=== PATIENT | female | born 1975 | race Caucasian/White ===

== ENCOUNTER 2017-11-21 08:04 | Day surgery (SDC) | payer SELFPAY ==
[2017-11-20 12:17] VITALS: BMI 22.6
[2017-11-21] MEDS ORDERED: MIDAZOLAM HCL 2 MG/2 ML SINGLE DOSE VIAL ONE (09:43)
[2017-11-21] MEDS ORDERED: DEXAMETHASONE SOD PHOSPHATE 4 MG/1 ML VIAL ONE ×2 (09:44→13:10)
[2017-11-21] MEDS ORDERED: ONDANSETRON 4 MG/2 ML VIAL ONE ×2 (09:44→13:10)
[2017-11-21] MEDS ORDERED: PROPOFOL 20 ML ONE ×6 (09:56→12:36)
[2017-11-21] MEDS ORDERED: HYDROmorphone HCL/PF 1 MG/ML VIAL (FOR PYXIS CHARGING ONLY) ONE (09:56)
[2017-11-21] MEDS ORDERED: LIDOCAINE HCL 2% 100 MG/5 ML DISP.SYRIN ONE (10:31)
[2017-11-21] MEDS ORDERED: BUPIVACAINE HCL/EPINEPHRINE/PF 30 ML VIAL IJ ONE (10:32)
[2017-11-21] MEDS ORDERED: LIDOCAINE HCL 1%, 10 MG/ML (20ML VIAL) ONE (10:33)
[2017-11-21] MEDS ORDERED: EPINEPHrine/PF 1 MG/1 ML (1:1,000) AMPULE ONE (10:33)
[2017-11-21] MEDS ORDERED: ceFAZolin SODIUM 1 GM VIAL ONE (10:41)
[2017-11-21] MEDS ORDERED: BACITRACIN 15 GM TUBE TOPICAL OINTMENT ONE (10:44)
[2017-11-21] MEDS ORDERED: BACITRACIN 3.5 GM OPTHALMIC OINT TUBE ONE (10:47)
[2017-11-21] MEDS ORDERED: POVIDONE-IODINE 5% OPHTHALMIC PREP 30 ML SOLUTION ONE (10:54)
[2017-11-21] MEDS ORDERED: BUPIVACAINE 0.25% /EPI 1:200,000 10 ML VIAL INF ONE ×2 (11:19)
[2017-11-21] MEDS ORDERED: ONDANSETRON 4 MG/2 ML VIAL IVPUSH PRN (13:44)
[2017-11-21] MEDS ORDERED: ACETAMINOPHEN 325 MG TABLET (FP) PO PRN (13:44)
[2017-11-21] MEDS ORDERED: LACTATED RINGERS SOLUTION 1,000 ML IV SCH (13:45)
[2017-11-21] MEDS ORDERED: oxyCODONE HCL 5 MG TABLET PO PRN (14:17)
[2017-11-21 15:55] VITALS: TEMP 98.2
[2017-11-21 16:06] VITALS: BP 104/60; PULSE 74
--- NOTE | 2017-11-26 11:46 | OP ---
DATE OF OPERATION: 11/21/2017 PREOPERATIVE DIAGNOSES: 1. Abdominal lipodystrophy. 2. Bilateral upper and lower eyelid dermatochalasis. 3. Nasal asymmetry. POSTOPERATIVE DIAGNOSES: 1. Abdominal lipodystrophy. 2. Bilateral upper and lower eyelid dermatochalasis. 3. Nasal asymmetry. PROCEDURES: 1. Abdominal liposuction. 2. Tip . 3. Bilateral upper and lower blepharoplasty. 4. Tip rhinoplasty. ATTENDING SURGEON: Bala Carrington MD ANESTHESIA: General endotracheal. ESTIMATED BLOOD LOSS: Less than 10 mL. SPECIMENS: None. COMPLICATIONS: None. CONDITION: Stable to recovery room, extubated. INDICATIONS: The patient is a 42-year-old female who presents with abdominal lipodystrophy as well as dermatochalasis of the bilateral upper and lower eyelids. In addition, the patient has nasal asymmetry due to previous surgery, and she is therefore, indicated for surgical correction of her concerned areas. The risks, benefits, and alternatives were discussed with the patient in detail, and all questions have been answered. The risks include, but are not limited to, bleeding, infection, pain, need for revision or further surgery, residual asymmetry, damage to neighboring structures including nerves, arteries, veins, and tendons. The patient understands these risks and has elected to proceed with surgery. DESCRIPTION OF PROCEDURE: After preoperative identification and making the patient in the preoperative holding area, the patient was transferred to the operating room and placed supine on the table while noninvasive anesthesia monitors were applied. Intravenous access was established. General anesthesia was administered, and the patient was intubated without difficulty. SCD was applied to bilateral lower extremities. IV antibiotics were then given. The patient's face as well as abdomen were then prepped and draped sterilely. After a time-out was performed, local anesthesia was infiltrated into bilateral upper and lower eyelids as well as into the tip and dorsum of the nose using 0.25% Marcaine with 1:200,000 units of epinephrine. A total of 10 mL were used. A similar local anesthetic solution was then infiltrated into the planned axis incisions of the abdomen. A No. 15 blade was used to make the access incisions in the abdomen. Standard tumescent solution was then infiltrated into the subcutaneous tissue of the abdomen and bilateral flanks. While this was given time to take effect, attention was turned toward the eyes. Bilateral corneal protectors were placed with care taking to provide adequate Lacri-Lube. Attention was first turned towards the right upper eyelid. The preoperative markings were reinforced, and a No. 15 blade was used to incise these preoperative markings. The redundant skin of the right upper eyelid was then removed just below the level of the dermis. At this point, a Kevin scissor was used to excise a small strip of orbicularis muscle. Once this was completed, the skin edges were reapproximated with a 5-0 nylon suture in a running subcuticular fashion. At the most lateral extent of the closure, a 6-0 nylon was placed in a simple interrupted fashion. At this point, attention was turned toward the lower eyelid. A transconjunctival incision was made just below the tarsal margin with an electrocautery. This was carried down into a preseptal plane. Gentle pressure on the right eye was then placed, and redundant medial and central fat was identified. The fat compartments were individually opened, and the redundant fat was gently teased out and was removed with electrocautery. Care was taken to ensure good hemostasis was achieved. There was noted to be an improved contour of the lower eyelid. Once this was completed, the transconjunctival incision was closed with a 5-0 fast-absorbing plain gut in buried fashion. Attention was first turned towards the lower eyelid skin. Redundant lower eyelid skin was swept up to the subciliary margin. A curved iris scissor was then used to excise this pinch of skin in a full-thickness fashion just under the ciliary margin. The skin edges were reapproximated with a 5-0 fast-absorbing plain gut in a simple running fashion. After this was completed, attention was turned toward the left side where the exact same procedures were performed for both the upper and lower eyelids, and therefore, only one side will be dictated. Attention at this point was turned towards the abdomen where a 4-mm double Katie cannula was loaded onto the [employer] system. Power-assisted liposuction was then performed of the abdomen and flanks, and once an appropriate contour was achieved, the access incisions were closed with a 5-0 plain in a simple interrupted fashion and then dressed with dry, sterile gauze and Tegaderms. At this point, attention was turned toward the tip of the nose. At this time, an incision was made with a No. 15 blade, and this was continued intranasally along the membranous portion of the caudal septum and finally up along the alar rims intranasally. The nasal skin flap was then degloved above the level of the lower lateral cartilages. Examination of the lower lateral cartilages revealed significant asymmetry with an exaggerated peak of the right dome. A No. 15 blade was used to contour the right nasal dome and remove this peak. A 5-0 PDS was placed in an interrupted buried fashion in order to reapproximate the cartilage edges. The contouring of the cartilage was then continued out more laterally along the lateral susan until symmetric contour was achieved. At this point, a single 5-0 PDS suture was placed between the 2 lateral crura in order to symmetrize their position. Once this was completed, the nasal skin flap was re-draped, and there was noted to be significant improvement in the contour. Therefore, the nasal pocket was irrigated. The transcolumellar incision was closed with a 6-0 nylon in a simple interrupted fashion. The intranasal portions were closed with a 5-0 plain gut in a simple interrupted fashion. Mastisol and Steri-Strips were then applied to the nose. The patient at this point was slowly awaken, was placed into abdominal binder, was extubated without incident, and transported to the recovery room in stable condition. BALA CARRINGTON M.D. [id number]
== END 2017-11-21 16:01 | disposition home or self-care (01) ==
LOC: FASU 08:04
PROVIDERS: ATTEND Plastic Surgery
PROC: 080P0ZZ Alteration of Left Upper Eyelid, Open Approach (ICD-10-PCS; 2017-11-21)
PROC: 080Q0ZZ Alteration of Right Lower Eyelid, Open Approach (ICD-10-PCS; 2017-11-21)
PROC: 0J083ZZ Alteration of Abdomen Subcutaneous Tissue and Fascia, Percutaneous Approach (ICD-10-PCS; 2017-11-21)
PROC: 090 Ear, Nose, Sinus, Alteration (ICD-10-PCS; principal; 2017-11-21 11:02)
PROC: 080R0ZZ Alteration of Left Lower Eyelid, Open Approach (ICD-10-PCS; 2017-11-21 11:02)
PROC: 080N0ZZ Alteration of Right Upper Eyelid, Open Approach (ICD-10-PCS; 2017-11-21 11:02)
DX: Z41.1 Encounter for cosmetic surgery (principal)
CPT/HCPCS: 84703; 94010; 94760